=== PATIENT | female | born 2000 | race American Indian/Alaskan Native ===

== ENCOUNTER 2019-03-18 21:31 | Emergency (ER) | payer SELFPAY ==
[2019-03-18 21:43] VITALS: BP 127/70
--- NOTE | 2019-03-18 22:43 | Emergency Department Report ---
Blank Doc - Documentation Documentation: 18-year-old female that presents with pelvic pain and vaginal discharge. This initial assessment/diagnostic orders/clinical plan/treatment(s) is/are subject to change based on patient's health status, clinical progression and re- assessment by fellow clinical providers in the ED. Further treatment and workup at subsequent clinical providers discretion. Patient/guardians urged not to elope from the ED as their condition may be serious if not clinically assessed and managed. Initial orders include: 1- Patient sent to [facility] for further evaluation and treatment 2- UA 3- pelvic exam to be done
[2019-03-18 23:06] LABS: HCG Qualitative,Urine Negative (Negative)
[2019-03-18 23:08] LABS: Bilirubin,Urine NEG (Negative); Blood,Urine SM (Negative); Color,Urine Yellow (Yellow); Urobilinogen,Urine < 2.0 mg/dL (<2.0)
--- NOTE | 2019-03-19 01:18 | Emergency Department Report ---
ED Female HPI - General Chief complaint: Abdominal Pain Stated complaint: ABD PAIN, WATERLIKE DISCHARGE Time Seen by Provider: 03/18/19 22:42 Source: patient Mode of arrival: Ambulatory Limitations: No Limitations - History of Present Illness Initial comments: Patient is a A1 18-year-old -[place] female with no past medical history who presents to the ED with complaint of acute onset persistent dysuria, thick vaginal discharge with malodorous smell and vaginal pain for the last 2 weeks. Patient denies vaginal bleeding, dyspareunia, urinary frequency and urgency, low back pain, abdominal pain, dizziness, fever, chills, headache or cough and sore throat. MD Complaint: vaginal discharge, dysuria, possible STD, other (vaginal pain) -: Sudden, week(s) (2) Location: other (vaginal) Radiation: non-radiating Severity: severe Severity scale (0 -10): 7 Quality: dull, burning Consistency: constant Improves with: none Worsens with: none Are you Now?: No Last Menstrual Period: 03/15/19 EDC: 12/20/19 Associated Symptoms: denies other symptoms, vaginal discharge, dysuria. denies: vaginal bleeding, abdominal pain, nausea/vomiting, fever/chills, headaches, loss of appetite, rash, seizure, shortness of breath, syncope, weakness - Related Data Sexually active: Yes : 1 Para: 0 A: 1 Previous Rx's Medication Instructions Recorded Last Taken Type Azithromycin 1,000 mg PO ONCE #2 tablet 03/19/19 Unknown Rx Doxycycline Hyclate 100 mg PO Q12H #20 tablet. 03/19/19 Unknown Rx Fluconazole [Diflucan TAB] 150 mg PO ONCE #1 tablet 03/19/19 Unknown Rx metroNIDAZOLE [Flagyl] 500 mg PO Q12HR #14 tab 03/19/19 Unknown Rx Allergies Allergy/AdvReac Type Severity Reaction Status Date / Time No Known Allergies Allergy Unverified 03/18/19 22:45 ED Review of Systems ROS: Stated complaint: ABD PAIN, WATERLIKE DISCHARGE Other details as noted in HPI Constitutional: denies: chills, fever Eyes: denies: eye pain, eye discharge, vision change ENT: denies: ear pain, throat pain Respiratory: denies: cough, shortness of breath, wheezing Cardiovascular: denies: chest pain, palpitations Endocrine: no symptoms reported Gastrointestinal: denies: abdominal pain, nausea, diarrhea Genitourinary: urgency, dysuria, frequency, discharge, other (vaginal pain) Musculoskeletal: denies: back pain, joint swelling, arthralgia Skin: denies: rash, lesions Neurological: denies: headache, weakness, paresthesias Psychiatric: denies: anxiety, depression Hematological/Lymphatic: denies: easy bleeding, easy bruising ED Past Medical Hx - Past Medical History Previous Medical History?: No - Surgical History Past Surgical History?: No - Social History Smoking Status: Never Smoker Substance Use Type: None - Medications Home Medications: Home Medications Medication Instructions Recorded Confirmed Last Taken Type Azithromycin 1,000 mg PO ONCE #2 tablet 03/19/19 Unknown Rx Doxycycline Hyclate 100 mg PO Q12H #20 tablet. 03/19/19 Unknown Rx Fluconazole [Diflucan TAB] 150 mg PO ONCE #1 tablet 03/19/19 Unknown Rx metroNIDAZOLE [Flagyl] 500 mg PO Q12HR #14 tab 03/19/19 Unknown Rx ED Physical Exam - General Limitations: No Limitations General appearance: alert, in no apparent distress - Head Head exam: Present: atraumatic, normocephalic, normal inspection - Eye Eye exam: Present: normal appearance, PERRL, EOMI Pupils: Present: normal accommodation - ENT ENT exam: Present: normal exam, normal orophraynx, mucous membranes moist, TM's normal bilaterally, normal external ear exam - Neck Neck exam: Present: normal inspection, full ROM - Respiratory Respiratory exam: Present: normal lung sounds bilaterally. Absent: respiratory distress, wheezes, rales, rhonchi, chest wall tenderness, accessory muscle use, decreased breath sounds, prolonged expiratory - Cardiovascular Cardiovascular Exam: Present: regular rate, normal rhythm, normal heart sounds. Absent: systolic murmur, diastolic murmur, rubs, gallop - GI/Abdominal GI/Abdominal exam: Present: soft, normal bowel sounds. 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 Absent: cervical motion tendernes, adnexal tenderness, adnexal mass, uterine enlargement, uterine tenderness - Extremities Exam Extremities exam: Present: normal inspection, full ROM, normal capillary refill - Back Exam Back exam: Present: normal inspection, full ROM. Absent: tenderness, muscle spasm, paraspinal tenderness - Neurological Exam Neurological exam: Present: alert, oriented X3, CN II-XII intact, normal gait - Psychiatric Psychiatric exam: Present: normal affect, normal mood - Skin Skin exam: Present: warm, dry, intact, normal color. Absent: rash ED Course Vital Signs 03/18/19 21:37 Temperature 98.2 F Pulse Rate 64 Respiratory 18 Rate Blood Pressure 127/70 O2 Sat by Pulse 99 Oximetry ED Medical Decision Making - Medical Decision Making This is a 18-year-old female who presented to the ED with complaint of vaginal pain, dysuria and vaginal discharge for 2 weeks. In the ED, patient is alert and oriented 3 and is not in distress. Urinalysis is unremarkable and wet prep is positive for Gardnerella vaginalis consistent with a clear vaginosis. The rest of the test is unremarkable. Patient was discharged home on medications and empirically treated for sexual transmitted disease as well given the risk factors. Patient was advised follow-up with health Department or REIMBURSEMENT MANAGER p hysician for further evaluation or return to the ED immediately if symptoms get worse. - Differential Diagnosis Bacterial vaginosis; STD; UTI; Nanda vaginitis; Trichomonas infection Critical care attestation.: If time is entered above; I have spent that time in minutes in the direct care of this critically ill patient, excluding procedure time. ED Disposition Clinical Impression: Vaginal discharge, Bacterial vaginosis, Possible exposure to STD Disposition: DC-01 TO HOME OR SELFCARE Is pt being admited?: No Does the pt Need Aspirin: No Condition: Stable Instructions: Bacterial Vaginosis (ED), Sexually Transmitted Diseases (ED) Additional Instructions: Take medications and food, drink plenty of fluids and follow-up with your primary care physician in 7-10 days for reevaluation. Return to the ED immediately if symptoms get worse. Prescriptions: Azithromycin 1,000 mg PO ONCE #2 tablet Fluconazole [Diflucan TAB] 150 mg PO ONCE #1 tablet Doxycycline Hyclate 100 mg PO Q12H #20 tablet. metroNIDAZOLE [Flagyl] 500 mg PO Q12HR #14 tab Referrals: PRIMARY CARE, [Primary Care Provider] - 3-5 Days Forms: STI Treatment and Prevention Time of Disposition: 01:14 Print Language: [id number]
== END 2019-03-19 01:45 | disposition home or self-care (01) ==
LOC: ED 21:31
DX: N76.0 Acute vaginitis (principal); B96.89 Other specified bacterial agents as the cause of diseases classified elsewhere; Z20.2 Contact with and (suspected) exposure to infections with a predominantly sexual mode of transmission
CPT/HCPCS: 81001; 81025; 87210; 87591